=== PATIENT | female | born 1975 | race Caucasian/White ===

== ENCOUNTER → 2021-06-13 | Outpatient (CLI) | payer BC ==
--- NOTE | 2021-06-25 08:41 | MM ---
Reason for exam: screening (asymptomatic). Last mammogram was performed 5 years and 7 months ago. History: Patient is postmenopausal and is nulliparous. Benign excisional biopsy of the left breast. Physical Findings: A clinical breast exam by your physician is recommended on an annual basis and results should be correlated with mammographic findings. MG Screening Mammo w CAD Bilateral CC and MLO view(s) were taken. Prior study comparison: November 21, 2015, mammogram, performed at [facility]. September 06, 2013, mammogram, performed at [facility]. The breast tissue is heterogeneously dense. This may lower the sensitivity of mammography. There is chronic nodularity in the left breast. New nodularity upper outer left breast zone B. ASSESSMENT: Incomplete: need additional imaging evaluation, BI-RAD 0 RECOMMENDATION: Special view mammogram of the left breast. If lesion persists on supplemental views, image directed ultrasound is recommended. [facility] will attempt to contact patient to return for supplemental views and ultrasound if indicated.
== END | disposition home or self-care (01) ==
LOC: RADMAMWWP 13:00
PROVIDERS: ATTEND Family Medicine
DX: Z12.31 Encounter for screening mammogram for malignant neoplasm of breast (principal); Z78.0 Asymptomatic menopausal state
CPT/HCPCS: 77067

== ENCOUNTER → 2021-07-07 | Outpatient (CLI) | payer BC ==
--- NOTE | 2021-07-07 11:33 | MM ---
Reason for exam: additional evaluation requested from abnormal screening. Last mammogram was performed 1 month ago. History: Patient is postmenopausal and is nulliparous. Benign excisional biopsy of the left breast. Took hormonal contraceptives for 15 years. Physical Findings: A clinical breast exam by your physician is recommended on an annual basis and results should be correlated with mammographic findings. MG Work Up Mamm w CAD LT Spot compression CC, spot compression MLO, and LM view(s) were taken of the left breast. Prior study comparison: June 13, 2021, bilateral MG screening mammo w CAD. November 21, 2015, mammogram, performed at [facility]. The breast tissue is heterogeneously dense. This may lower the sensitivity of mammography. 13mm nodule lower outer quadrant 5.4cm from nipple. These results were verbally communicated with the patient and result sheet given to the patient on 07/07/21. ASSESSMENT: Incomplete: need additional imaging evaluation, BI-RAD 0 RECOMMENDATION: Ultrasound of the left breast.
--- NOTE | 2021-07-07 11:35 | USB ---
Reason for exam: additional evaluation requested from abnormal screening. History: Patient is postmenopausal and is nulliparous. Benign excisional biopsy of the left breast. Took hormonal contraceptives for 15 years. US Breast Workup Limited LT Left limited breast ultrasound including focal area of concern, retroareolar and axilla demonstrates a 1.2 x 0.8 x 0.7cm mixed lesion at 4 o'clock, 4.2cm from nipple. Biopsy recommended. These results were verbally communicated with the patient and result sheet given to the patient on 07/07/21. ASSESSMENT: Suspicious, BI-RAD 4 RECOMMENDATION: Ultrasound core biopsy of the left breast. Called Dr. Daniels's office with mammographic findings and has scheduled an appointment for the patient for 07/18/21 at 4:[address] López. Biopsy scheduled for 07/24/21 at 12:00. PRELIMINARY REPORT CALLED AND FAXED TO DR. LÓPEZ ON 07/07/21.
== END | disposition home or self-care (01) ==
LOC: RADMAMWWP 09:01
PROVIDERS: ATTEND Family Medicine
DX: R92.8 Other abnormal and inconclusive findings on diagnostic imaging of breast (principal); Z78.0 Asymptomatic menopausal state
CPT/HCPCS: 77065

== ENCOUNTER → 2021-07-18 | Outpatient (CLI) | payer BC ==
[2021-07-18 16:18] VITALS: BP 123/69; PULSE 73; RESP 18; TEMP 98
--- NOTE | 2021-07-18 16:49 | P.GSHP ---
History of Present Illness H&P Date: 07/18/21 Chief Complaint: abnormal left breast mammogram Tri is a 45 year old white female seen in consultation for Dr. Daniels regarding a mammographic abnormality in her left breast. She had a bilateral mammogram on 04-12-22. This led to a left breast diagnostic mammogram and ultrasound. Nothing of concern was noted in the right breast. This was done on 07-07-21. This showed a 1.2 cm mixed lesion at 4:00 for which biopsy was recommended. The patient has felt some pain in the lateral left breast. The pain started about 1 year ago. It is intermittent. It is worse with stress and smoking. She feels an indentation at that site. She has not complained of any masses or nodules in either breast. She's never had any surgery on her breasts before. She has not had any recent trauma or infection in the breast. She has not had any recent nipple discharge. BCP: 12 years started at 14 hormones: none nicotine: 6 cigarettes/day; used to smoke 4/day caffiene: coffee 2 cups/day chocolate: none Family History: maternal aunt: lung cancer great grandfather maternal: skin cancer Hormonal History: menarche: 12 M4 hysterectomy at 42; left ovaries Surgical history: Hysterectomy D&C Medical History: asthma Hyperglycemic Social History: nicotine: 6/day alcohol: occasional drugs: none - Constitutional Constitutional: Reports sweats - EENT Eyes: denies blurred vision, denies pain Ears: bilateral: decreased hearing, deny: tinnitus Ears, nose, mouth and throat: Reports headache, Reports sore throat - Breasts Breasts: bilateral: as per HPI - Cardiovascular Cardiovascular: Denies chest pain, Denies shortness of breath - Respiratory Respiratory: Reports cough - Gastrointestinal Comment: IBS Gastrointestinal: Denies abdominal pain, Denies diarrhea, Denies nausea, Denies vomiting - Genitourinary (Female) Genitourinary: Denies dysuria, Denies hematuria - Menstruation Menstruation: Reports as per HPI - Musculoskeletal Musculoskeletal: Denies myalgias - Integumentary Integumentary: Denies pruritus, Denies rash - Neurological Neurological: Denies numbness, Denies weakness - Psychiatric Psychiatric: Reports anxiety, Denies depression - Endocrine Endocrine: Denies fatigue, Denies weight change - Hematologic/Lymphatic Comment: none - Allergic/Immunologic Allergic/Immunologic: Reports seasonal allergies Past Medical History Past Medical History: Asthma, Fibromyalgia Additional Past Medical History / Comment(s): hypoglycemia History of Any Multi-Drug Resistant Organisms: None Reported Past Surgical History: Hysterectomy Additional Past Surgical History / Comment(s): Dilatation and Curetagge for miscarriage Past Anesthesia/Blood Transfusion Reactions: No Reported Reaction Past Psychological History: Anxiety Smoking Status: Current every day smoker Past Alcohol Use History: None Reported Past Drug Use History: None Reported Medications and Allergies Home Medications Medication Instructions Recorded Confirmed Type PARoxetine [Paxil] 10 mg PO DAILY 07/11/21 07/18/21 History Ascorbic Acid [Vitamin C] 500 mg PO DAILY 07/18/21 07/18/21 History Cetirizine HCl [Zyrtec] 10 mg PO DAILY 07/18/21 07/18/21 History Cholecalciferol [Vitamin D3 (25 25 mcg PO DAILY 07/18/21 07/18/21 History Mcg = 1000 Iu)] Zinc 50 mg PO DAILY 07/18/21 07/18/21 History Allergies Allergy/AdvReac Type Severity Reaction Status Date / Time kiwi Allergy Itching Verified 07/18/21 16:11 pseudoephedrine Allergy Rash/Hives Verified 07/18/21 16:11 [From Seldane-D] terfenadine [From Seldane-D] Allergy Rash/Hives Verified 07/18/21 16:11 Surgical - Exam Vital Signs Temp Pulse Resp BP Pulse Ox 98.0 F 73 18 123/69 99 07/18/21 16:13 07/18/21 16:13 07/18/21 16:13 07/18/21 16:13 07/18/21 16:13 BMI: 35.8 - General no distress - Eyes normal ocular movement - ENT no hearing loss - Neck trachea midline - Respiratory normal respiratory effort, clear to auscultation - Cardiovascular Rhythm: regular - Abdomen Abdomen: soft - Integumentary normal turgor - Neurologic no disoriented, no combative - Musculoskeletal normal gait, normal posture - Psychiatric oriented to time, oriented to person, oriented to place, speech is normal, memory intact Breast Exam: BRA: 40DDD inspection: Bilateral grade 2/3 ptosis Palpation: Right breast: Multi-positional exam fibrocystic changes no dominant masses or nodules of concern Right axilla: No adenopathy of concern Left breast: Multiple positional exam tenderness in the lateral aspect but no dominant masses or nodules of concern Left axilla: No adenopathy of concern Results Mammogram and ultrasound reviewed Assessment and Plan Assessment: Impression: Abnormal left breast mammogram and ultrasound/most likely fibrocystic change Tenderness lateral aspect left breast Nicotine dependence Approximately 2 cups of coffee per day Plan: Ultrasound-guided core biopsy left breast we have discussed life style modification decreasing caffeine intake and stopping smoking Patient will follow up after ultrasound core biopsy of the left breast CC: Dr. Daniels Benefits of the procedure discussed with the patient. Risks include but are not limited to bleeding, infection, reaction to the anesthetic. She understands and wishes to proceed.
== END ==
LOC: WWCWWP 16:06
PROVIDERS: ATTEND Surgery
DX: R92.8 Other abnormal and inconclusive findings on diagnostic imaging of breast (principal); F17.210 Nicotine dependence, cigarettes, uncomplicated; J45.909 Unspecified asthma, uncomplicated; Z91.018 Allergy to other foods; Z88.8 Allergy status to other drugs, medicaments and biological substances

== ENCOUNTER → 2021-07-24 | Day surgery (SDC) | payer BC ==
[2021-07-24 12:44] VITALS: RESP 16; TEMP 98.1
[2021-07-24 13:59] VITALS: BP 122/73; PULSE 59
--- NOTE | 2021-07-24 16:04 | USB ---
EXAMINATION TYPE: US biopsy breast VAD LT, MG postbiopsy diagnostic mammo LT wo CAD DATE OF EXAM: 07/24/2021 CLINICAL HISTORY: 45-year-old female R92.8 ABNORMAL ZACK. TECHNIQUE: Ultrasound guided core biopsy of the left breast. COMPARISON: 07/07/2021 FINDINGS: The procedure of ultrasound guided core biopsy was explained to the patient. Benefits, alt ernatives, and risks were discussed. An informed consent was then obtained. The patient was placed in supine positioning for imaging and for the procedure. The overlying skin w as prepped and draped in usual sterile fashion. Lidocaine was used as anesthetic into the skin and s ubcutaneous tissue up to area of concern in the 4:00 left breast. Under ultrasound guidance, a 13-gauge vacuum-assisted Mammotome Elite biopsy gun was used to obtain 7 core samples. Following this, a coil clip was left in lesion. The patient tolerated the procedure well without any immediate complication. The patient was kept in the radiology department for short stay after the procedure and then discharged home in stable condi tion. Post biopsy mammogram shows the coil clip at the site of mammographic nodule. IMPRESSION: Successful, uncomplicated ultrasound guided core biopsy of 4:00 left breast complex cyst. Full pathol ogy results to follow.
== END ==
LOC: RADUSWWP 12:26
PROVIDERS: ATTEND Surgery
DX: D24.2 Benign neoplasm of left breast (principal); N60.12 Diffuse cystic mastopathy of left breast; R92.8 Other abnormal and inconclusive findings on diagnostic imaging of breast; N60.82 Other benign mammary dysplasias of left breast; Z88.8 Allergy status to other drugs, medicaments and biological substances; Z91.018 Allergy to other foods
CPT/HCPCS: 77065; 19083; A4648; J2001; 88305

== ENCOUNTER → 2021-10-03 | Outpatient (CLI) | payer BC ==
[2021-10-03 14:46] VITALS: BP 130/87; PULSE 61; RESP 17; TEMP 98.4
--- NOTE | 2021-10-03 14:57 | P.PN ---
Subjective Progress Note Date: 10/03/21 Principal diagnosis: left breast intraductal papilloma intraductal papilloma left breast Tri is a 46 year old white female seen in consultation for Dr. Daniels regarding a mammographic abnormality in her left breast. She had a bilateral mammogram on 04-12-22. This led to a left breast diagnostic mammogram and ultrasound. Nothing of concern was noted in the right breast. This was done on 07-07-21. This showed a 1.2 cm mixed lesion at 4:00 for which biopsy was recommended. The patient has felt some pain in the lateral left breast. The pain started about 1 year ago. It is intermittent. It is worse with stress and smoking. She feels an indentation at that site. She has not complained of any masses or nodules in either breast. She's never had any surgery on her breasts before. She has not had any recent trauma or infection in the breast. She has not had any recent nipple discharge. She had an ultrasound core biopsy on 07-24-21. Pathology revealed an intraductal papilloma. The ultrasound biopsy was reviewed with Dr. Gao and it was noted the lesion was about 8mm in size. It was felt it should be removed. BCP: 12 years started at 14 hormones: none nicotine: 6 cigarettes/day; used to smoke 4/day caffiene: coffee 2 cups/day chocolate: none Family History: maternal aunt: lung cancer great grandfather maternal: skin cancer Hormonal History: menarche: 12 M4 hysterectomy at 42; left ovaries Surgical history: Hysterectomy D&C Medical History: asthma Hyperglycemic Social History: nicotine: 6/day alcohol: occasional drugs: none - Constitutional Constitutional: Reports sweats - EENT Eyes: denies blurred vision, denies pain Ears: bilateral: decreased hearing, deny: tinnitus Ears, nose, mouth and throat: Reports headache, Reports sore throat - Breasts Breasts: bilateral: as per HPI - Cardiovascular Cardiovascular: Denies chest pain, Denies shortness of breath - Respiratory Respiratory: Reports cough - Gastrointestinal Comment: IBS Gastrointestinal: Denies abdominal pain, Denies diarrhea, Denies nausea, Denies vomiting - Genitourinary (Female) Genitourinary: Denies dysuria, Denies hematuria - Menstruation Menstruation: Reports as per HPI - Musculoskeletal Musculoskeletal: Denies myalgias - Integumentary Integumentary: Denies pruritus, Denies rash - Neurological Neurological: Denies numbness, Denies weakness - Psychiatric Psychiatric: Reports anxiety, Denies depression - Endocrine Endocrine: Denies fatigue, Denies weight change - Hematologic/Lymphatic Comment: none - Allergic/Immunologic Allergic/Immunologic: Reports seasonal allergies Objective - Vital Signs Vital signs: Vital Signs Temp 98.4 F 10/03/21 14:44 Pulse 61 10/03/21 14:44 Resp 17 10/03/21 14:44 BP 130/87 10/03/21 14:44 Pulse Ox 99 10/03/21 14:44 FiO2 Intake & Output 10/02/21 10/03/21 10/03/21 18:59 06:59 18:59 Weight 92.986 kg - Exam BMI: 36.3 - Constitutional General appearance: Present: cooperative - EENT Eyes: Present: EOMI ENT: Present: hearing grossly normal - Neck Neck: Present: normal ROM - Respiratory Respiratory: bilateral: CTA - Cardiovascular Heart sounds: normal: S1, S2 - Gastrointestinal General gastrointestinal: Present: soft - Integumentary Integumentary: Present: normal turgor - Musculoskeletal Musculoskeletal: Present: gait normal - Psychiatric Psychiatric: Present: A&O x's 3, appropriate affect, intact judgment & insight - Additional findings Additional findings: Breast Exam: BRA: 42DDD inspection: bilateral grade 2/3 ptosis palpation: right breast: Multi-positional exam no dominant masses or nodules of concern Right axilla: No adenopathy of concern left breast: Multi-positional exam no dominant masses or nodules of concern Left axilla: No adenopathy of concern Assessment and Plan Assessment: Impression: asthma Hyperglycemic intraductal papilloma left breast Plan: Localization and excisional lumpectomy left breast, possible onco-plastic tissue transfer Risks and benefits of procedure discussed with the patient. Risks include but are not limited to bleeding, infection, reaction to the anesthetic. Additionally if the lesions were not to be adequately sampled potentially we would need additional tissue. CC: Jeremiah
== END | disposition home or self-care (01) ==
LOC: WWCWWP 14:28
PROVIDERS: ATTEND Surgery
DX: Z53.9 Procedure and treatment not carried out, unspecified reason (principal)

== ENCOUNTER → 2021-10-14 | Day surgery (SDC) | payer BC ==
[2021-10-13 11:04] VITALS: BMI 36.8
[~2021-10-14] MED LIST: ALPRAZolam 0.25 MG TAB ONE; ALPRAZolam 0.25 MG TAB PO ONE; DEXAMETHASONE SOD PHOSPHATE 4 MG/ML 1 ML VIAL IV ONE; HEPARIN SODIUM,PORCINE/PF 5,000 UNIT/0.5 ML SYRINGE SQ PRN; LACTATED RINGERS 1,000 ML IV ONE; LIDOCAINE 1% (10MG/ML) FOR IV START INTRADERMA PRN; LIDOCAINE 1% INJ 10MG/ML (20 ML MDV) SQ ONE; LIDOCAINE 2% INJ 20 MG/ML (2 ML VIAL) ONE; LIDOCAINE 2% INJ 20 MG/ML SQ ONE; LIDOCAINE 4% LTA KIT (4 ML) TOPICAL ONE; METOCLOPRAMIDE 5 MG/ML 2 ML VIAL IVP PRN; MIDAZOLAM 2 MG/2 ML VIAL ONE; ONDANSETRON 4 MG/2 ML VIAL IVP ONE; PROPOFOL 10 MG/ML 20 ML VIAL IV ONE; Pre Op ABX Message 1 EACH MISC MISCELLANE ONE; SCOPOLAMINE 1 MG/72 HR PATCH TRANSDERM ONE; SUCCINYLCHOLINE CHLORIDE 100 MG/5 ML SYR IV ONE; fentaNYL (PF) 50 MCG/ML 2 ML AMP ONE
[2021-10-14] MEDS: LACTATED RINGERS 1,000 ML IV SCH ×2 (09:00→16:41)
[2021-10-14 09:22] LABS: Glucose,Whole Blood 97 mg/dL (70-110)
[2021-10-14 09:41] VITALS: RESP 16
--- NOTE | 2021-10-14 17:30 | P.OP ---
Date of Procedure: 10/14/21 Preoperative Diagnosis: Intraductal papilloma left breast Postoperative Diagnosis: Same Procedure(s) Performed: Needle localization excision of lesion left breast Anesthesia: MOMO Surgeon: Radha López Estimated Blood Loss (ml): 5 IV fluids (ml): 400 Pathology: other (Breast tissue) Condition: stable Disposition: same day Indications for Procedure: Core biopsy intraductal papilloma left breast Operative Findings: Fibrofatty breast tissue Description of Procedure: Following needle localization of area of concern in the left breast the patient was brought to the operative suite. Following induction of anesthesia the left breast was prepped and draped in a sterile fashion. Incision was made and carried down to the shaft of the needle. Circumferential surrounding tissue was excised. The specimen was painted for orientation. The wound was irrigated. After assured that hemostasis was attained titanium clips were placed. The deep tissues were closed using 3-0 Vicryl suture. The subcutaneous tissues closed using 3-0 Vicryl suture and the skin was closed using a 4-0 Monocryl. The specimen was sent to radiology to confirm the area of concern had been sampled. All instrument and sponge counts were correct at the end of the case. The patient tolerated the procedure in stable condition.
--- NOTE | 2021-10-14 17:35 | P.DS ---
Providers Attending physician: Radha López Primary care physician: Victor Manuel Daniels Plan - Discharge Summary New Discharge Prescriptions: No Action PARoxetine [Paxil] 10 mg PO HS Cetirizine HCl [Zyrtec] 5 mg PO BID Multivitamin [Multivitamins Adult Gummies] 1 tab PO DAILY Zinc Tab 11 mg PO Q2D Ascorbic Acid [Vitamin C] 500 mg PO DAILY Cholecalciferol [Vitamin D3 (25 Mcg = 1000 Iu)] 100 mcg PO DAILY Discharge Medication List PARoxetine [Paxil] 10 mg PO HS 07/11/21 [History] Ascorbic Acid [Vitamin C] 500 mg PO DAILY 07/18/21 [History] Cetirizine HCl [Zyrtec] 5 mg PO BID 07/18/21 [History] Multivitamin [Multivitamins Adult Gummies] 1 tab PO DAILY 10/03/21 [History] Cholecalciferol [Vitamin D3 (25 Mcg = 1000 Iu)] 100 mcg PO DAILY 10/13/21 [History] Zinc Tab 11 mg PO Q2D 10/13/21 [History] Follow up Appointment(s)/Referral(s): Radha López MD [STAFF PHYSICIAN] - 10/24/21 12:20 pm Activity/Diet/Wound Care/Special Instructions: do not drive for 24 hours after discharge may shower after 48 hours wear bra at all times Discharge Disposition: HOME SELF-CARE
[2021-10-14] MEDS: HYDROmorphone 0.5 MG/0.5 ML SYRINGE IVP PRN ×2 (18:00→18:40)
[2021-10-14 18:04] VITALS: TEMP 97.9
[2021-10-14 19:14] VITALS: BP 140/70
[2021-10-14 19:32] VITALS: PULSE 66
== END | disposition home or self-care (01) ==
LOC: OR 08:20
PROVIDERS: ATTEND Surgery
DX: D24.2 Benign neoplasm of left breast (principal)
CPT/HCPCS: 19281; 88307; 76098; C1819; J2001 ×3; J2250; J1100; J2405; J3010; J0330; J2704; J1170; J1644

== ENCOUNTER → 2021-10-24 | Outpatient (CLI) | payer BC ==
[2021-10-24 15:39] VITALS: BP 117/75; PULSE 57; RESP 17; TEMP 98.1
--- NOTE | 2021-10-24 15:59 | P.PN ---
Progress Note - Text Progress Note Date: 10/24/21 Tri underwent a left breast lumpectom on 10-14-21 which showed intraductal papillomatosis. Physical exam: Lungs clear: Heart regular rate and rhythm Incision: Clean and dry Plan: Left breast mammogram 6 months with physician exam at that time CC: Dr. Daniels
== END ==
LOC: WWCWWP 15:16
PROVIDERS: ATTEND Surgery
DX: D24.2 Benign neoplasm of left breast (principal); Z88.8 Allergy status to other drugs, medicaments and biological substances; Z91.018 Allergy to other foods

== ENCOUNTER → 2023-09-13 | Outpatient (CLI) | payer BC ==
--- NOTE | 2023-09-16 12:34 | MM ---
Reason for Exam: Screening (asymptomatic). Last screening mammogram was performed 12 month(s) ago. Patient History: Menarche at age 11. Patient has no children. Hysterectomy at age 42. Postmenopausal. Previous Hyperplasia w/o Atypia at age 46. Patient used Hormonal Contraceptives for 15 years. 10/14/2021, Benign MG pre op needle loc LT on the left side. Benign Excisional Biopsy on the left side. 07/24/2021, Benign Core Biopsy on the left side. Risk Values: Beverly 5 year model risk: 1.6%. NCI Lifetime model risk: 14.5%. Prior Study Comparison: 07/07/2021 Left Diagnostic Mammogram, [facility]. 07/24/2021 Left Diagnostic Mammogram, [facility]. 08/31/2022 Bilateral MG 3D diag mammo w/cad [place], [facility]. Tissue Density: The breasts are heterogeneously dense, which may obscure small masses. Findings: Analyzed By CAD. Surgical clips left breast. Right breast: There is no suspicious group of microcalcifications or new suspicious mass. Left breast: There is no suspicious group of microcalcifications or new suspicious mass. Overall Assessment: Benign, BI-RAD 2 Management: Screening Mammogram of both breasts in [address] [facility] will attempt to contact patient to return for supplemental views and ultrasound if indicated. Patient should continue monthly self-breast exams. A clinical breast exam by your physician is recommended on an annual basis. This exam should not preclude additional follow-up of suspicious palpable abnormalities. Note on Beverly scores and lifetime risk: 1. A Beverly score greater than 3% is considered moderate risk. If this is the case, consider specialist referral to assess eligibility for a risk reducing agent. 2. If overall lifetime risk for the development of breast cancer is 20% or higher, the patient may qualify for future screening with alternating mammogram and breast MRI. Electronically signed and approved by: Hansel Toribio DO
== END | disposition home or self-care (01) ==
LOC: RADMAMWWP 13:21
PROVIDERS: ATTEND Family Medicine
DX: Z12.31 Encounter for screening mammogram for malignant neoplasm of breast (principal); Z78.0 Asymptomatic menopausal state
CPT/HCPCS: 77063; 77067

== ENCOUNTER → 2024-11-15 | Outpatient (CLI) | payer BC ==
--- NOTE | 2024-11-16 08:33 | MM ---
Reason for Exam: Screening (asymptomatic). Last mammogram was performed 1 year(s) and 2 month(s) ago. Patient History: Menarche at age 11. Patient has no children. Hysterectomy at age 42. Postmenopausal. Previous Hyperplasia w/o Atypia at age 46. Patient used Hormonal Contraceptives for 15 years. 10/14/2021, Benign MG pre op needle loc LT on the left side. Benign Excisional Biopsy on the left side. 07/24/2021, Benign Core Biopsy on the left side. Risk Values: Beverly 5 year model risk: 1.7%. NCI Lifetime model risk: 14.3%. Prior Study Comparison: 07/24/2021 Left Diagnostic Mammogram, [facility]. 08/31/2022 Bilateral MG 3D diag mammo w/cad [place], [facility]. 09/13/2023 Bilateral MG 3D screening mammo w/cad, [facility]. Tissue Density: The breasts are heterogeneously dense, which may obscure small masses. Findings: Analyzed By CAD. Left breast surgical clips. Right breast: There is no suspicious group of microcalcifications or new suspicious mass. Left breast: Stable left upper quadrant probable intramammary lymph node. There is no suspicious group of microcalcifications or new suspicious mass. Overall Assessment: Benign, BI-RAD 2 Management: Screening Mammogram of both breasts in [address] [facility] will attempt to contact patient to return for supplemental views and ultrasound if indicated. Patient should continue monthly self-breast exams. A clinical breast exam by your physician is recommended on an annual basis. This exam should not preclude additional follow-up of suspicious palpable abnormalities. Note on Beverly scores and lifetime risk: 1. A Beverly score greater than 3% is considered moderate risk. If this is the case, consider specialist referral to assess eligibility for a risk reducing agent. 2. If overall lifetime risk for the development of breast cancer is 20% or higher, the patient may qualify for future screening with alternating mammogram and breast MRI. [facility], , 11/16/2024 8:15 AM. Electronically signed and approved by: Hansel Toribio DO
== END | disposition home or self-care (01) ==
LOC: RADMAMWWP 16:18
PROVIDERS: ATTEND Family Medicine
DX: Z12.31 Encounter for screening mammogram for malignant neoplasm of breast (principal); R92.333 Mammographic heterogeneous density, bilateral breasts; Z78.0 Asymptomatic menopausal state; Z92.0 Personal history of contraception
CPT/HCPCS: 77063; 77067